=== PATIENT | male | born 1940 | race African-American/Black ===

== ENCOUNTER 2025-02-07 04:05 | Inpatient (IN) | payer OTHER, MEDICARE ==
[~2025-02-07] VITALS: Ht 177.8 cm; Wt 64.9 kg
[2025-02-07] MEDS: MORPHINE SULFATE 4 MG/ML INJ (FOR IV/IM USE) IV ONE (06:08)
[2025-02-07 07:36] LABS: BASOPHILS % 0.1 % (0.0-2.0); EOSINOPHILS % 0.2 % (0.0-5.0); HEMATOCRIT. 41.9 % (42.0-52.0); HEMOGLOBIN. 14.4 g/dL (14.0-18.0); LYMPHOCYTES % 16.8 % (20.0-50.0); MEAN PLATELET VOLUME 8.5 fl (7.4-10.4); MONOCYTES % 6.1 % (2.0-8.0); NEUTROPHILS % 76.8 % (40.0-76.0); PLATELET 217 x1000/uL (130-400); RED BLOOD CELL COUNT 4.72 mill/uL (4.7-6.1); RED CELL DISTRIBUTION WIDTH 14.9 % (11.6-14.6)
[2025-02-07 07:50] LABS: CREATININE 1.3 mg/dL (0.6-1.3)
[2025-02-07 07:51] LABS: ETHANOL BLOOD < 10 mg/dL (<10); UREA NITROGEN BLOOD 22 mg/dL (9-23)
[2025-02-07 07:52] LABS: ASPARTATE AMINOTRANSFERASE 62 IU/L (<34); BILIRUBIN DIRECT 0.4 mg/dL (<=3.0)
[2025-02-07 07:53] LABS: BILIRUBIN TOTAL 1.0 mg/dL (0.1-1.0); PROTEIN TOTAL 7.7 g/dL (6.0-8.3)
[2025-02-07 12:00] VITALS: BP 126/64; PULSE 56; RESP 18; TEMP 35.9; O2SAT 98
[2025-02-07 13:40] VITALS: BP 126/64; PULSE 57; RESP 18; TEMP 35.9176
[2025-02-07] MEDS: HYDROCODONE/ACETAMINOPHEN 5/325MG TABLET PO NR (14:05)
[2025-02-07 16:00] VITALS: BP 101/58; PULSE 55; RESP 16; TEMP 36.5; O2SAT 100
[2025-02-07] MEDS ORDERED: DEXTROSE 50% WATER 50ML SYRINGE IV PRN (16:15)
[2025-02-07] MEDS: PIPERACILLIN/TAZO 3.375G/50ML 50 ML IV SCH (16:49)
[2025-02-07] MEDS: INSULIN LISPRO 100 UNITS/ML SUBCUT SCH (17:03)
[2025-02-07] MEDS: BLOOD SUGAR DIAGNOSTIC STRIP TEST SCH (17:03)
[2025-02-07 20:00] VITALS: BP 106/60; PULSE 55; RESP 18; TEMP 36.2; O2SAT 99
[2025-02-07] MEDS ORDERED: NALOXONE HCL 0.4MG/ML VIAL IV PRN (21:15)
[2025-02-08] VITALS (8 sets, daily range): BP systolic 84–116; BP diastolic 51–70; PULSE 56–84; RESP 17–20; TEMP 35.6–36.6; O2SAT 97–100
[2025-02-08] MEDS: PANTOPRAZOLE 40MG DR TABLET PO SCH (06:24)
[2025-02-08] MEDS: HYDROCODONE/ACETAMINOPHEN 5/325MG TABLET PO PRN (06:39)
[2025-02-08] MEDS: LACTULOSE 20G/30ML UDC PO PRN (06:57)
[2025-02-08] MEDS: ASPIRIN 81MG TABLET PO SCH (08:40)
[2025-02-08] MEDS: FINASTERIDE 5MG TABLET PO SCH (08:40)
[2025-02-08 10:27] LABS: BASOPHILS % 0.2 % (0.0-2.0); EOSINOPHILS % 0.5 % (0.0-5.0); HEMATOCRIT. 45.2 % (42.0-52.0); HEMOGLOBIN. 15.2 g/dL (14.0-18.0); LYMPHOCYTES % 15.3 % (20.0-50.0); MEAN PLATELET VOLUME 8.7 fl (7.4-10.4); MONOCYTES % 5.8 % (2.0-8.0); NEUTROPHILS % 78.2 % (40.0-76.0); PLATELET 193 x1000/uL (130-400); RED BLOOD CELL COUNT 4.99 mill/uL (4.7-6.1); RED CELL DISTRIBUTION WIDTH 15.1 % (11.6-14.6)
[2025-02-08 10:32] LABS: CREATININE 1.1 mg/dL (0.6-1.3)
[2025-02-08 10:33] LABS: UREA NITROGEN BLOOD 18 mg/dL (9-23)
[2025-02-08] MEDS: NA PHOS,M-B/NA PHOS,DI-BA ENEMA 118ML PR SCH (16:27)
[2025-02-08] MEDS ORDERED: SODIUM CHLORIDE 0.9% 500 ML IV SCH (16:30)
[2025-02-08] MEDS: SODIUM CHLORIDE 0.9% 500 ML IV ONE (19:59)
[2025-02-08] MEDS: ATORVASTATIN CALCIUM 40MG TABLET PO SCH (20:13)
[2025-02-11 05:09] LABS: ALPHA FETOPROTEIN TUMOR MARKER 9.2 ng/mL (0.0-6.4); CA 19-9 < 2 U/mL (0-35); CARCINOEMBRYONIC AG - SEND OUT 113.0 ng/mL (0.0-4.7)
== END 2025-02-08 23:00 | disposition home or self-care (01) | DRG 392 ==
LOC: ER 04:05 → 6EST 09:03 → EDBEDREQSVC 11:15 → EDBEDREQ 11:15 → EDBEDREQTM 11:15 → ENRESERV 11:24
PROVIDERS: ADMIT Internal Medicine; ATTEND Internal Medicine
DX: K59.00 Constipation, unspecified (principal); C78.7 Secondary malignant neoplasm of liver and intrahepatic bile duct; D64.9 Anemia, unspecified; E11.9 Type 2 diabetes mellitus without complications; I10 Essential (primary) hypertension; I25.10 Atherosclerotic heart disease of native coronary artery without angina pectoris; N40.0 Benign prostatic hyperplasia without lower urinary tract symptoms; R16.0 Hepatomegaly, not elsewhere classified; R59.0 Localized enlarged lymph nodes; Z85.89 Personal history of malignant neoplasm of other organs and systems; Z95.0 Presence of cardiac pacemaker
CPT/HCPCS: 36415; 74176; 76700; 80048; 80076; 80320; 82105; 82378; 82962; 83036; 84145; 84153; 85025; 86301; 93005; 99285; A4606; J2270; J2543; G0480